=== PATIENT | male | born 1955 | race Caucasian/White ===

== ENCOUNTER 2018-06-19 06:43 | Day surgery (SDC) | payer OTHER ==
[2018-05-13 13:28] VITALS: BMI 23.7
--- NOTE | 2018-06-19 09:53 | CT ---
CERVICAL MYELOGRAM: History: 62-year-old with history of cervical radiculopathy. Dose: 1.5 minutes fluoroscopy, 558 mGy*cm^2 DAP. Technique: Informed consent was obtained from the patient. The L1-2 interlaminar space was located using fluoros copy. The overlying skin was prepped and draped in the usual sterile manner. 1% Lidocaine solution wa s anesthetize the overlying soft tissues. A 22 gauge spinal needle was placed into the subarachnoid s pace using fluoroscopic guidance. A total of 10 ml of Isovue M300 was introduced into the subarachnoi d space. This was positioned into the cervical spine using gravity. This was followed by post myelogr aphic CT images. C1-2: There is some degenerative changes seen at the articulation of the dens and anterior arch of C1 . No evidence of significant central canal stenosis seen. C2-3: There is a mild broad based disc bulge with no evidence of significant thecal sac compression o r neural foraminal narrowing. C3-4: Minimal right C3-4 neural foraminal narrowing is seen due to uncal vertebral osteophyte hypertr ophy. The central canal is patent. C4-5: There is some mild disc space height loss and disc bulge. No significant central stenosis seen. Minimal right C4-5 neural foraminal narrowing is seen due to uncal vertebral osteophyte hypertrophy. The left neural foramen is patent. C5-6: Disc space height loss and disc desiccation is seen. There is a broad based disc osteophyte com plex centrally compressing the thecal sac resulting in a moderate degree of central stenosis. No sign ificant degree of neural foraminal narrowing is seen. C6-7: There is disc space height loss and a broad based disc osteophyte complex centrally resulting i n mild thecal sac compression. No significant evidence of neural foraminal narrowing. C7-T1: Unremarkable. IMPRESSION: C5-6 and C6-7 disc space height loss with anterior and posterior osteophytes compatible with changes of spondylosis. Incidentally noted, bilateral upper lobe lung parenchymal fibrotic changes are seen. POS: BHAVNA
== END 2018-06-19 10:00 | disposition home or self-care (01) ==
LOC: RAD 06:43
PROVIDERS: ATTEND Neurological Surgery
PROC: B01B1ZZ Fluoroscopy of Spinal Cord using Low Osmolar Contrast (ICD-10-PCS; principal; 2018-06-19)
DX: M54.12 Radiculopathy, cervical region (principal); I10 Essential (primary) hypertension; E03.9 Hypothyroidism, unspecified; C14.0 Malignant neoplasm of pharynx, unspecified; Z88.0 Allergy status to penicillin; Z95.0 Presence of cardiac pacemaker
CPT/HCPCS: 62302; 72126

== ENCOUNTER 2018-10-20 07:19 | Inpatient (IN) | payer OTHER ==
[2018-10-17 09:29] VITALS: BMI 24.3
[2018-10-20 08:34] LABS: #Eosinphils 0.1 thou/uL (0.0-0.7); #Lymphocytes 1.2 thou/uL (1.20-3.40); #Monocytes 0.7 thou/uL (0.11-0.59); #Neutrophils 3.4 thou/uL (1.40-6.50); %Basophils 0.7 % (0.0-1.0); %Eosinophils 1.3 % (0.0-10.0); %Lymphocytes 21.3 % (21.0-51.0); %Monocytes 13.7 % (0.0-10.0); Mean Corpuscular HGB CONC 32.8 g/dL (32.0-36.0); Mean Corpuscular Hemoglobin 31.4 pg (27.0-31.0); Mean Corpuscular Volume 95.9 fL (78.0-98.0); Mean Platelet Volume 7.8 fL (7.4-10.4); Platelet Count 149 thou/uL (130-400); RBC Distribution Width 12.6 % (11.5-14.5); Red Blood Cell (RBC) Count 4.15 mill/uL (4.70-6.10); White Blood Cell (WBC) Count 5.4 thou/uL (4.8-10.8)
[2018-10-20] MEDS ORDERED: Levofloxacin 500 mg/D5W 100 ml Premix Bag ONE (08:45)
[2018-10-20] MEDS ORDERED: Clindamycin/D5W 900 mg/50 ml Premix Bag ONE (08:45)
[2018-10-20 08:55] LABS: Anion Gap 10 mmol/L (10-20); BUN (Urea Nitrogen) 23 mg/dL (8.4-25.7); Calc. Creatinine Clearance 90 mL/min (70-130); Calcium 9.4 mg/dL (7.8-10.44); Carbon Dioxide 30 mmol/L (23-31); Chloride 104 mmol/L (98-107); Estimated GFR-MDRD 71; Glucose 96 mg/dL (80-115); Potassium 4.2 mmol/L (3.5-5.1); Sodium 140 mmol/L (136-145)
[2018-10-20] MEDS ORDERED: Sodium Chloride 0.9% 10 ML ONE (09:43)
[2018-10-20] MEDS ORDERED: Famotidine/PF 20 mg/2ml Vial ONE (09:48)
[2018-10-20] MEDS ORDERED: Fentanyl 100 MCG/2 ML VIAL ONE ×2 (09:48→12:12)
[2018-10-20] MEDS ORDERED: SUGAMMADEX SODIUM 500 MG/5 ML VIAL ONE (10:37)
[2018-10-20] MEDS ORDERED: Metoclopramide HCl 10 MG/2 ML VIAL ONE (11:24)
[2018-10-20] MEDS ORDERED: Rocuronium Bromide 10 MG/ML (10ML VIAL) ONE (11:24)
[2018-10-20] MEDS ORDERED: Glycopyrrolate 0.2 MG/ML 5 ML SYRINGE ONE (11:24)
[2018-10-20] MEDS ORDERED: Succinylcholine Chloride 20 MG/ML 10 ml SYRINGE FS ONE (11:24)
[2018-10-20] MEDS ORDERED: Ketorolac Tromethamine 30 MG/ML VIAL ONE (11:24)
[2018-10-20] MEDS ORDERED: PHENYLEPHRINE-NS 100 MCG/ML 10 ML SYRINGE ONE (11:24)
[2018-10-20] MEDS ORDERED: Lidocaine 1% PF 5 ML VIAL ONE (11:24)
[2018-10-20] MEDS ORDERED: PROPOFOL 200 MG/20 ML VIAL ONE (11:24)
[2018-10-20] MEDS ORDERED: Dexamethasone 20 MG/5 ML VIAL ONE (11:24)
[2018-10-20] MEDS ORDERED: Ondansetron PF 4 MG/2 ML Vial ONE (11:24)
[2018-10-20] MEDS ORDERED: ePHEDrine 50 MG/ML VIAL ONE (11:24)
[2018-10-20] MEDS ORDERED: Promethazine HCl 25 MG/ML VIAL IM PRN ×2 (11:30→12:19)
[2018-10-20] MEDS ORDERED: Ondansetron HCl/PF 4 MG/2 ML Vial IVP PRN (11:30)
[2018-10-20] MEDS ORDERED: Promethazine HCl 25 MG/ML VIAL SLOW IVP PRN (11:30)
[2018-10-20] MEDS ORDERED: tiZANidine HCl 4 MG TAB PO PRN (12:19)
[2018-10-20] MEDS ORDERED: Promethazine HCl 12.5 MG SUPP PR PRN (12:19)
[2018-10-20] MEDS ORDERED: Mag-Al 1200 mg/1200 mg/30 ML UDCUP PO PRN (12:19)
[2018-10-20] MEDS ORDERED: Promethazine 25 MG TAB PO PRN (12:19)
[2018-10-20] MEDS ORDERED: Ondansetron PF 4 MG/2 ML Vial IVP PRN (12:19)
[2018-10-20] MEDS ORDERED: traMADol HCl 50 MG TAB PO PRN ×2 (12:19)
[2018-10-20] MEDS ORDERED: HYDROcodone/Acetaminophen 10/325 mg Tablet PO PRN ×2 (12:19)
[2018-10-20] MEDS ORDERED: diphenhydrAMINE 50 MG/ML VIAL IVP PRN (12:19)
[2018-10-20] MEDS ORDERED: diphenhydrAMINE 25 MG CAP PO PRN (12:19)
[2018-10-20] MEDS ORDERED: Morphine 4 MG/ML VIAL SLOW IVP PRN (12:19)
[2018-10-20] MEDS ORDERED: Morphine 2 MG/ML SYRINGE SLOW IVP PRN (12:22)
--- NOTE | 2018-10-20 12:23 | OP ---
DATE OF PROCEDURE: 10/20/2018 PEDIATRICS TEACHER: Anshul Moctezuma PA-C PROCEDURE PERFORMED: Anterior cervical diskectomy, C5-C6 and C6-C7; interbody arthrodesis; intervertebral biomechanical device; local morselized autograft; demineralized bone matrix; anterior titanium instrumentation, C6 and C7. DESCRIPTION OF PROCEDURE: The patient was brought to the operating room and intubated. He was positioned supine in modest extension on a gel-filled donut. Incision was made in the right precervical area and dissecting medial sternocleidomastoid muscle, identified the anterior cervical spine and confirmed the level by x-ray. The dissection was somewhat challenged by the radiation effect to his neck. We placed distraction across the disk spaces, although they were made extremely narrowed and partially auto-fused. Remaining disk material was completely debrided and the bony endplates decorticated for the purpose of arthrodesis. An appropriate-sized intervertebral biomechanical PEEK device was brought into the field, filled with demineralized bone matrix, local morselized autograft, and tapped in place securely at C5-C6 and C6-C7. Next, an anterior plate was brought into the field and secured to C5, C6, and C7 using two 14-mm screws at each level. The wound was then extensively irrigated. MAC hemostasis was secured. The wound was closed in anatomic layers over a drain. Job ID: [id number]
[2018-10-20] MEDS: Sodium Chloride 0.9% 1,000 ML IV SCH ×2 (13:51→22:15)
[2018-10-20] MEDS: Clindamycin/D5W 900 MG in Premix Bag 1 BAG IVPB SCH (17:50)
[2018-10-20] MEDS ORDERED: Polyethylene Glycol 3350 17 GM Packet PO PRN (18:46)
--- NOTE | 2018-10-20 19:55 | PRG ---
DATE OF SERVICE: 10/20/2018 SUBJECTIVE: A 62-year-old male with cervical radiculopathy, underwent anterior cervical diskectomy earlier today. Hospitalist Team was consulted for medical management. The patient denies any chest discomfort, shortness of breath, fevers, chills, nausea, vomiting, or new focal neurologic deficit. He is followed by Dr. Caceres at [facility] for his cardiac issues. His pacemaker was recently interrogated per the patient report. REVIEW OF SYSTEMS: All other review of systems were reviewed and were found negative. OBJECTIVE: VITAL SIGNS: Temperature 98, pulse 73, respirations 18, blood pressure 122/73, O2 saturation 96% on room air. GENERAL: A 62-year-old male, in no apparent distress. LUNGS: Clear to auscultation bilaterally. No wheezing, rales, or rhonchi. HEART: S1 and S2 present. Regular rate and rhythm. No rubs or gallops. ABDOMEN: Soft, nontender. Bowel sounds present. EXTREMITIES: No edema or calf tenderness. LABORATORY FINDINGS: WBC 5.4 with hemoglobin 13, hematocrit 39.8, platelet of 149. Chemistry showed sodium 140, potassium 4.2, chloride 104, bicarb 30, BUN 23, creatinine 1.05. IMAGING STUDIES: EKG by my review showed paced rhythm. Cervical spine CT from earlier this year showed findings consistent with cervical spondylosis. IMPRESSION: 1. Cervical radiculopathy, status post anterior cervical diskectomy. 2. Hypertension. We will continue ramipril at home dose. The patient takes 5 mg at night and 2.5 mg in the morning. 3. Hypothyroidism. We will continue levothyroxine. 4. Third-degree atrioventricular block, status post pacemaker. 5. History of intracranial bleed in the past. Thank you for this consultation. We will follow with you. Job ID: [id number]
[2018-10-20] MEDS: Senokot S 8.6-50 MG TAB PO SCH (20:19)
[2018-10-20] MEDS ORDERED: Ramipril 5 MG CAP PO SCH (21:00)
[2018-10-20] MEDS ORDERED: BIOTENE MOUTH SPRAY 44.3 ML MM PRN (21:42)
[2018-10-21] MEDS: Clindamycin/D5W 900 MG in Premix Bag 1 BAG IVPB SCH ×2 (01:22→09:27)
[2018-10-21] MEDS ORDERED: Levothyroxine Sodium 125 MCG TAB PO SCH (06:00)
[2018-10-21] MEDS: Senokot S 8.6-50 MG TAB PO SCH (09:28)
--- NOTE | 2018-10-21 10:47 | DIS ---
DATE OF ADMISSION: 10/20/2018 DATE OF DISCHARGE: 10/21/2018 HOSPITAL COURSE: The patient is a 62-year-old male, status post C5 to C7 ACDF. Following the surgery, he was transitioned to the Med/Surg floor, where his pain has been well-controlled with p.o. medications, he is tolerating regular diet. The patient did have some initial difficulty with urinary retention and required I and O cath x1, however, this is resolved. He is now urinating without any difficulty. He did have DORA drain placed intraoperatively and this output has trended down nicely with 55 mL last night. The patient has minimal pain. His left arm weakness is unchanged. His dressing remains dry and intact. I discussed home care precautions. We will follow up with the patient in 2 weeks. Job ID: [id number]
[2018-10-21 11:20] VITALS: BP 128/71; TEMP 97.9
== END 2018-10-21 12:20 | disposition home or self-care (01) | DRG 472 ==
LOC: SDC 07:19 → SJJU 12:47 → OBSVTOIN 13:01
PROVIDERS: ADMIT Neurological Surgery; ATTEND Neurological Surgery
PROC: 0RG20A0 Fusion of 2 or more Cervical Vertebral Joints with Interbody Fusion Device, Anterior Approach, Anterior Column, Open Approach (ICD-10-PCS; principal; 2018-10-20)
PROC: 0RT30ZZ Resection of Cervical Vertebral Disc, Open Approach (ICD-10-PCS; 2018-10-20)
DX: M50.321 Other cervical disc degeneration at C4-C5 level (principal); I44.2 Atrioventricular block, complete; M54.12 Radiculopathy, cervical region; M50.323 Other cervical disc degeneration at C6-C7 level; I10 Essential (primary) hypertension; E03.9 Hypothyroidism, unspecified; Z95.0 Presence of cardiac pacemaker; Z88.0 Allergy status to penicillin
CPT/HCPCS: 36415; 76000; 80048; 85025; C1713; C1776; J0131; J0690; J1100; J1885; J1956; J2001; J2270; J2405; J2704; J2765; J3010; J3490; S0028

== ENCOUNTER 2018-12-24 14:20 | Outpatient (CLI) | payer OTHER ==
--- NOTE | 2018-12-24 15:45 | RAD ---
CERVICAL SPINE 3 VIEWS: Date: 12/24/18 HISTORY: Cervical radiculopathy. Postop follow-up. FINDINGS: Postoperative changes are noted. Anterior plate and screws transfix C5, C6, and C7. Interbody implant s. Posterior spondylytic changes are prominent at C5-6 and C6-7. Vertebral body height and alignment is preserved. IMPRESSION: Postoperative and degenerative changes of cervical spine as described. POS: OFF
== END 2018-12-24 14:21 | disposition home or self-care (01) ==
LOC: TBSIIMAG 14:20
PROVIDERS: ATTEND Neurological Surgery
DX: M47.22 Other spondylosis with radiculopathy, cervical region (principal); Z98.890 Other specified postprocedural states
CPT/HCPCS: 72040